=== PATIENT | female | born 1985 | race Caucasian/White ===

== ENCOUNTER 2020-10-19 18:51 | Inpatient (IN) | payer MEDICAID, OTHER ==
[~2020-10-19] VITALS: Ht 165.1 cm; Wt 71.7 kg
[2020-10-19 19:50] LABS: COVID AG,FIA SOURCE NASOPHARYNGEAL
[2020-10-19 19:55] LABS: BASOPHILS % (AUTO) 0.8 % (0.0-2.0); EOSINOPHILS % (AUTO) 0.9 % (1.0-6.0); HEMATOCRIT 43.1 % (36-46); LYMPHOCYTES # (AUTO) 2.1 K/uL (1.0-4.8); LYMPHOCYTES % (AUTO) 31.7 % (22.0-44.0); MEAN CORPUSCULAR HEMOGLOBIN 27.4 pg (26.0-34.0); MEAN CORPUSCULAR HGB CONC 32.5 G/dL (31.0-37.0); MEAN CORPUSCULAR VOLUME 84 fL (80-100); MONOCYTES # (AUTO) 0.8 K/uL (0.1-1.0); MONOCYTES % (AUTO) 11.3 % (2.0-9.0); NEUTROPHILS # (AUTO) 3.7 K/uL (1.8-7.7); NEUTROPHILS % (AUTO) 55.3 % (40.0-70.0); PLATELET COUNT (AUTO) 329 K/uL (150-450); RED BLOOD CELL COUNT(AUTO) 5.11 MIL/uL (4.00-5.20); RED CELL DISTRIBUTION WIDTH 14.6 % (11.5-14.5)
[2020-10-19 20:05] LABS: ANION GAP 8 mmol/L (8-16); CALCIUM, TOTAL 8.8 mg/dL (8.8-10.5); CARBON DIOXIDE 28 mmol/L (22-29); CHLORIDE 99 mmol/L (98-107); CREATININE 0.64 mg/dL (0.60-1.30); GLOMERULAR FILTR. RATE CALC > 60 mL/min (>60); GLUCOSE,RANDOM 90 mg/dL (70-110); POTASSIUM 3.5 mmol/L (3.5-5.1); SODIUM SERUM 135 mmol/L (136-145); UREA NITROGEN, BLOOD 4 mg/dL (7-18)
[2020-10-19 20:16] LABS: ALANINE AMINOTRANSFERASE 24 U/L (12-78); ALBUMIN 3.2 g/dL (3.4-5.0); ALKALINE PHOSPHATASE 56 U/L (46-116); ASPARTATE AMINOTRANSFERASE 12 U/L (15-37); BILIRUBIN,TOTAL 0.4 mg/dL (0.1-1.0); HCG,QUANTITATIVE < 1 mIU/mL (0-6); TOTAL PROTEIN, SERUM 7.1 g/dL (6.4-8.2)
[2020-10-19 20:40] LABS: AMPHET/METH SCREEN,URINE NEGATIVE (NEGATIVE); BARBITURATE SCREEN, URINE NEGATIVE (NEGATIVE); BENZODIAZEPINES SCREEN,URINE NEGATIVE (NEGATIVE); CANNABINOID SCREEN,URINE NEGATIVE (NEGATIVE); COCAINE SCREEN,URINE NEGATIVE (NEGATIVE); METHADONE SCREEN, URINE NEGATIVE (NEGATIVE); OPIATE SCREEN,URINE NEGATIVE (NEGATIVE); PHENCYCLIDINE SCREEN,URINE NEGATIVE (NEGATIVE)
[2020-10-19] MEDS ORDERED: ZOLPIDEM TARTRATE 10 MG TABLET PO PRN (21:30)
[2020-10-20 02:55] LABS: CHOL/HDL RATIO 2.8 (3.9-5.7); CHOLESTEROL 175 mg/dL (131-200); HDL CHOLESTEROL 63 mg/dL (40-60); LDL CHOL (CALC.) 94 mg/dL (0-130); TRIGLYCERIDES 90 mg/dL (15-150)
[2020-10-20] MEDS ORDERED: LOPERAMIDE HCL 2 MG CAPSULE PO PRN (12:00)
[2020-10-20] MEDS ORDERED: MAG HYDROX/AL HYDROX/SIMETH ES 30 ML SUSPENSION UDCUP PO PRN (12:00)
[2020-10-20] MEDS ORDERED: PROMETHAZINE HCL 25 MG TABLET PO PRN (12:00)
[2020-10-20] MEDS ORDERED: ACETAMINOPHEN 325 MG TABLET PO PRN (12:00)
[2020-10-20] MEDS ORDERED: MAGNESIUM HYDROXIDE SUSPENSION 30 ML UDCUP PO PRN (12:00)
[2020-10-20] MEDS ORDERED: TUBERCULIN, PURIFIED PROTEIN DERIVATIVE 5 TU/0.1 ML SYRINGE ID ONE (12:00)
[2020-10-20] MEDS ORDERED: HydrOXYzine PAMOATE 50 MG CAPSULE PO PRN (12:00)
[2020-10-20] MEDS ORDERED: PALIPERIDONE PALMITATE 234 MG/1.5 ML SYRINGE IM ONE (12:00)
[2020-10-20 12:48] VITALS: BP 147/89
[2020-10-20] MEDS: GuaiFENesin/D-METHORPHAN [SUGAR-FREE] 200-20MG/10 ML SYRUP UDCUP PO PRN (13:16)
[2020-10-20] MEDS: LORazepam 2 MG TABLET PO PRN ×2 (13:17→17:28)
[2020-10-20 16:00] VITALS: BP 97/73
[2020-10-20] MEDS: THIAMINE 100 MG TABLET PO SCH (17:28)
[2020-10-20] MEDS ORDERED: OLANZapine 5 MG RAPDIS TABLET PO SCH (21:00)
[2020-10-20] MEDS: MELATONIN 5 MG TABLET PO SCH (22:59)
[2020-10-21 02:00] VITALS: BP 120/81
[2020-10-21] MEDS: OLANZapine 5 MG RAPDIS TABLET PO PRN ×2 (04:46→16:18)
[2020-10-21] MEDS: LORazepam 2 MG TABLET PO PRN (04:46)
[2020-10-21] MEDS: GuaiFENesin/D-METHORPHAN [SUGAR-FREE] 200-20MG/10 ML SYRUP UDCUP PO PRN (04:49)
[2020-10-21 04:53] VITALS: BP 115/83
[2020-10-21 07:27] LABS: HEMOGLOBIN A1C 5.6 % (3.8-5.6)
[2020-10-21 07:35] LABS: CHOL/HDL RATIO 3.3 (3.9-5.7); FREE T4 (FREE THYROXINE) 0.92 ng/dL (0.76-1.46); THYROID STIMULATING HORMONE 1.15 uIU/mL (0.36-3.74)
[2020-10-21] MEDS: MULTIVITAMINS WITH MINERALS, THERAPEUTIC TABLET PO SCH (08:32)
[2020-10-21] MEDS: OMEGA-3/DHA/EPA/FISH OIL 1,000 MG CAPSULE PO SCH (08:32)
[2020-10-21] MEDS: NALTREXONE HCL 50 MG TABLET PO SCH (08:32)
[2020-10-21] MEDS: FOLIC ACID 1 MG TABLET PO SCH (08:32)
[2020-10-21] MEDS: THIAMINE 100 MG TABLET PO SCH ×2 (08:32→16:17)
[2020-10-21 08:45] VITALS: BP 126/69
[2020-10-21 16:26] VITALS: BP 106/76
[2020-10-21] MEDS: MELATONIN 5 MG TABLET PO SCH (21:20)
[2020-10-21] MEDS: OLANZapine 10 MG RAPDIS TABLET PO SCH (21:21)
[2020-10-22] MEDS: FOLIC ACID 1 MG TABLET PO SCH (08:36)
[2020-10-22] MEDS: OMEGA-3/DHA/EPA/FISH OIL 1,000 MG CAPSULE PO SCH (08:36)
[2020-10-22] MEDS: MULTIVITAMINS WITH MINERALS, THERAPEUTIC TABLET PO SCH (08:36)
[2020-10-22] MEDS: THIAMINE 100 MG TABLET PO SCH ×2 (08:36→16:16)
[2020-10-22] MEDS: NALTREXONE HCL 50 MG TABLET PO SCH (08:37)
[2020-10-22 08:54] VITALS: BP 109/58
[2020-10-22] MEDS: OLANZapine 5 MG RAPDIS TABLET PO PRN (16:50)
[2020-10-22 17:21] VITALS: BP 116/72
[2020-10-22] MEDS: MELATONIN 5 MG TABLET PO SCH (20:57)
[2020-10-22] MEDS: OLANZapine 10 MG RAPDIS TABLET PO SCH (20:57)
[2020-10-23 08:00] VITALS: BP 115/81
[2020-10-23] MEDS: NALTREXONE HCL 50 MG TABLET PO SCH (08:42)
[2020-10-23] MEDS: FLUoxetine HCL 20 MG CAPSULE PO SCH (08:42)
[2020-10-23] MEDS: FOLIC ACID 1 MG TABLET PO SCH (08:42)
[2020-10-23] MEDS: MULTIVITAMINS WITH MINERALS, THERAPEUTIC TABLET PO SCH (08:42)
[2020-10-23] MEDS: THIAMINE 100 MG TABLET PO SCH ×2 (08:42→17:09)
[2020-10-23] MEDS: OMEGA-3/DHA/EPA/FISH OIL 1,000 MG CAPSULE PO SCH (08:42)
[2020-10-23] MEDS: GuaiFENesin/D-METHORPHAN [SUGAR-FREE] 200-20MG/10 ML SYRUP UDCUP PO PRN ×2 (12:03→17:13)
[2020-10-23] MEDS: LORazepam 2 MG TABLET PO PRN (12:07)
[2020-10-23 16:00] VITALS: BP 125/62
[2020-10-23] MEDS: MELATONIN 5 MG TABLET PO SCH (20:44)
[2020-10-23] MEDS: OLANZapine 5 MG RAPDIS TABLET PO SCH (20:44)
[2020-10-23] MEDS: QUEtiapine FUMARATE 200 MG TABLET PO SCH (20:45)
[2020-10-24 08:00] VITALS: BP 105/57
[2020-10-24] MEDS: FOLIC ACID 1 MG TABLET PO SCH (08:49)
[2020-10-24] MEDS: THIAMINE 100 MG TABLET PO SCH ×2 (08:50→16:55)
[2020-10-24] MEDS: MULTIVITAMINS WITH MINERALS, THERAPEUTIC TABLET PO SCH (08:50)
[2020-10-24] MEDS: OMEGA-3/DHA/EPA/FISH OIL 1,000 MG CAPSULE PO SCH (08:50)
[2020-10-24] MEDS: NALTREXONE HCL 50 MG TABLET PO SCH (08:50)
[2020-10-24] MEDS: FLUoxetine HCL 20 MG CAPSULE PO SCH (08:50)
[2020-10-24] MEDS ORDERED: PALIPERIDONE PALMITATE 156 MG/ML SYRINGE IM ONE (09:00)
[2020-10-24 16:06] VITALS: BP 104/64
[2020-10-24] MEDS: GuaiFENesin/D-METHORPHAN [SUGAR-FREE] 200-20MG/10 ML SYRUP UDCUP PO PRN (16:58)
[2020-10-24] MEDS: QUEtiapine FUMARATE 200 MG TABLET PO SCH (21:50)
[2020-10-24] MEDS: OLANZapine 5 MG RAPDIS TABLET PO SCH (21:50)
[2020-10-24] MEDS: MELATONIN 5 MG TABLET PO SCH (21:50)
[2020-10-25 08:37] LABS: COVID AG,FIA SOURCE NASOPHARYNGEAL
[2020-10-25 09:00] VITALS: BP 122/60
[2020-10-25] MEDS: THIAMINE 100 MG TABLET PO SCH ×2 (09:03→16:07)
[2020-10-25] MEDS: NALTREXONE HCL 50 MG TABLET PO SCH (09:03)
[2020-10-25] MEDS: MULTIVITAMINS WITH MINERALS, THERAPEUTIC TABLET PO SCH (09:03)
[2020-10-25] MEDS: OMEGA-3/DHA/EPA/FISH OIL 1,000 MG CAPSULE PO SCH (09:03)
[2020-10-25] MEDS: FOLIC ACID 1 MG TABLET PO SCH (09:03)
[2020-10-25] MEDS: FLUoxetine HCL 20 MG CAPSULE PO SCH (09:03)
[2020-10-25] MEDS: GuaiFENesin/D-METHORPHAN [SUGAR-FREE] 200-20MG/10 ML SYRUP UDCUP PO PRN (16:07)
[2020-10-25 16:32] VITALS: BP 105/65
[2020-10-25] MEDS: IBUPROFEN 600 MG TABLET PO PRN (19:05)
[2020-10-25] MEDS: MELATONIN 5 MG TABLET PO SCH (20:19)
[2020-10-25] MEDS: OLANZapine 5 MG RAPDIS TABLET PO SCH (20:19)
[2020-10-25] MEDS: GABAPENTIN 400 MG CAPSULE PO SCH (20:19)
[2020-10-25] MEDS: QUEtiapine FUMARATE 200 MG TABLET PO SCH (20:19)
[2020-10-26] MEDS: NALTREXONE HCL 50 MG TABLET PO SCH (08:29)
[2020-10-26] MEDS: OMEGA-3/DHA/EPA/FISH OIL 1,000 MG CAPSULE PO SCH (08:29)
[2020-10-26] MEDS: THIAMINE 100 MG TABLET PO SCH ×2 (08:29→16:00)
[2020-10-26] MEDS: FOLIC ACID 1 MG TABLET PO SCH (08:29)
[2020-10-26] MEDS: GABAPENTIN 400 MG CAPSULE PO SCH ×4 (08:29→20:07)
[2020-10-26] MEDS: MULTIVITAMINS WITH MINERALS, THERAPEUTIC TABLET PO SCH (08:29)
[2020-10-26] MEDS: FLUoxetine HCL 20 MG CAPSULE PO SCH (08:29)
[2020-10-26 12:49] VITALS: BP 102/65
[2020-10-26] MEDS: IBUPROFEN 600 MG TABLET PO PRN ×2 (16:03→20:53)
[2020-10-26 16:21] VITALS: BP 109/62
[2020-10-26] MEDS: MELATONIN 5 MG TABLET PO SCH (20:07)
[2020-10-26] MEDS: OLANZapine 5 MG RAPDIS TABLET PO SCH (20:07)
[2020-10-26] MEDS: QUEtiapine FUMARATE 200 MG TABLET PO SCH (20:07)
[2020-10-27 08:04] VITALS: BP 157/54
[2020-10-27] MEDS: MULTIVITAMINS WITH MINERALS, THERAPEUTIC TABLET PO SCH (08:25)
[2020-10-27] MEDS: FLUoxetine HCL 20 MG CAPSULE PO SCH (08:25)
[2020-10-27] MEDS: OMEGA-3/DHA/EPA/FISH OIL 1,000 MG CAPSULE PO SCH (08:25)
[2020-10-27] MEDS: GABAPENTIN 400 MG CAPSULE PO SCH ×4 (08:25→20:10)
[2020-10-27] MEDS: NALTREXONE HCL 50 MG TABLET PO SCH (08:25)
[2020-10-27] MEDS: FOLIC ACID 1 MG TABLET PO SCH (08:25)
[2020-10-27] MEDS: THIAMINE 100 MG TABLET PO SCH ×2 (08:26→16:32)
[2020-10-27 16:13] VITALS: BP 110/69
[2020-10-27] MEDS: IBUPROFEN 600 MG TABLET PO PRN (16:34)
[2020-10-27] MEDS: MELATONIN 5 MG TABLET PO SCH (20:10)
[2020-10-27] MEDS: OLANZapine 5 MG RAPDIS TABLET PO SCH (20:10)
[2020-10-27] MEDS ORDERED: QUEtiapine FUMARATE 100 MG TABLET PO SCH (21:00)
[2020-10-28 08:00] VITALS: BP 103/73
[2020-10-28] MEDS: MULTIVITAMINS WITH MINERALS, THERAPEUTIC TABLET PO SCH (08:07)
[2020-10-28] MEDS: GABAPENTIN 400 MG CAPSULE PO SCH ×4 (08:07→20:33)
[2020-10-28] MEDS: OMEGA-3/DHA/EPA/FISH OIL 1,000 MG CAPSULE PO SCH (08:07)
[2020-10-28] MEDS: FLUoxetine HCL 20 MG CAPSULE PO SCH (08:07)
[2020-10-28] MEDS: NALTREXONE HCL 50 MG TABLET PO SCH (08:07)
[2020-10-28] MEDS: THIAMINE 100 MG TABLET PO SCH ×2 (08:07→16:14)
[2020-10-28] MEDS: FOLIC ACID 1 MG TABLET PO SCH (08:07)
[2020-10-28 16:00] VITALS: BP 107/67
[2020-10-28] MEDS: LORazepam 2 MG TABLET PO PRN (16:14)
[2020-10-28] MEDS: MELATONIN 5 MG TABLET PO SCH (20:31)
[2020-10-28] MEDS: OLANZapine 10 MG RAPDIS TABLET PO SCH (20:33)
[2020-10-29 08:00] VITALS: BP 105/60
[2020-10-29] MEDS: FLUoxetine HCL 20 MG CAPSULE PO SCH (09:17)
[2020-10-29] MEDS: THIAMINE 100 MG TABLET PO SCH ×2 (09:17→16:15)
[2020-10-29] MEDS: OMEGA-3/DHA/EPA/FISH OIL 1,000 MG CAPSULE PO SCH (09:17)
[2020-10-29] MEDS: NALTREXONE HCL 50 MG TABLET PO SCH (09:17)
[2020-10-29] MEDS: MULTIVITAMINS WITH MINERALS, THERAPEUTIC TABLET PO SCH (09:17)
[2020-10-29] MEDS: GABAPENTIN 400 MG CAPSULE PO SCH ×4 (09:17→20:08)
[2020-10-29] MEDS: FOLIC ACID 1 MG TABLET PO SCH (09:17)
[2020-10-29 16:26] VITALS: BP 124/84
[2020-10-29] MEDS: OLANZapine 10 MG RAPDIS TABLET PO SCH (20:08)
[2020-10-29] MEDS: MELATONIN 5 MG TABLET PO SCH (20:08)
[2020-10-30 09:15] VITALS: BP 97/49
[2020-10-30] MEDS: OMEGA-3/DHA/EPA/FISH OIL 1,000 MG CAPSULE PO SCH (09:33)
[2020-10-30] MEDS: FOLIC ACID 1 MG TABLET PO SCH (09:34)
[2020-10-30] MEDS: FLUoxetine HCL 20 MG CAPSULE PO SCH (09:34)
[2020-10-30] MEDS: NALTREXONE HCL 50 MG TABLET PO SCH (09:34)
[2020-10-30] MEDS: MULTIVITAMINS WITH MINERALS, THERAPEUTIC TABLET PO SCH (09:34)
[2020-10-30] MEDS: THIAMINE 100 MG TABLET PO SCH (09:34)
[2020-10-30] MEDS: GABAPENTIN 400 MG CAPSULE PO SCH ×4 (09:34→20:04)
[2020-10-30 16:00] VITALS: BP 110/72
[2020-10-30] MEDS: IBUPROFEN 600 MG TABLET PO PRN (16:26)
[2020-10-30] MEDS: MELATONIN 5 MG TABLET PO SCH (20:04)
[2020-10-30] MEDS: GuaiFENesin/D-METHORPHAN [SUGAR-FREE] 200-20MG/10 ML SYRUP UDCUP PO PRN (20:04)
[2020-10-30] MEDS: OLANZapine 10 MG RAPDIS TABLET PO SCH (20:04)
[2020-10-31] MEDS: NALTREXONE HCL 50 MG TABLET PO SCH (08:29)
[2020-10-31] MEDS: OMEGA-3/DHA/EPA/FISH OIL 1,000 MG CAPSULE PO SCH (08:29)
[2020-10-31] MEDS: MULTIVITAMINS WITH MINERALS, THERAPEUTIC TABLET PO SCH (08:29)
[2020-10-31] MEDS: FLUoxetine HCL 20 MG CAPSULE PO SCH (08:29)
[2020-10-31] MEDS: GABAPENTIN 400 MG CAPSULE PO SCH ×4 (08:29→20:52)
[2020-10-31 08:37] VITALS: BP 88/46
[2020-10-31 17:13] VITALS: BP 106/68
[2020-10-31] MEDS: GuaiFENesin/D-METHORPHAN [SUGAR-FREE] 200-20MG/10 ML SYRUP UDCUP PO PRN (17:14)
[2020-10-31] MEDS: MELATONIN 5 MG TABLET PO SCH (20:52)
[2020-10-31] MEDS: OLANZapine 10 MG RAPDIS TABLET PO SCH (20:53)
[2020-11-01] MEDS: OMEGA-3/DHA/EPA/FISH OIL 1,000 MG CAPSULE PO SCH (08:04)
[2020-11-01] MEDS: NALTREXONE HCL 50 MG TABLET PO SCH (08:05)
[2020-11-01] MEDS: MULTIVITAMINS WITH MINERALS, THERAPEUTIC TABLET PO SCH (08:05)
[2020-11-01] MEDS: GABAPENTIN 400 MG CAPSULE PO SCH ×4 (08:05→20:35)
[2020-11-01] MEDS: FLUoxetine HCL 20 MG CAPSULE PO SCH (08:05)
[2020-11-01 08:15] VITALS: BP 94/54
[2020-11-01 11:47] LABS: COVID AG,FIA SOURCE NASOPHARYNGEAL
[2020-11-01 16:14] VITALS: BP 103/54
[2020-11-01] MEDS: MELATONIN 5 MG TABLET PO SCH (20:35)
[2020-11-01] MEDS: OLANZapine 10 MG RAPDIS TABLET PO SCH (20:36)
[2020-11-02] MEDS: FLUoxetine HCL 20 MG CAPSULE PO SCH (08:29)
[2020-11-02] MEDS: NALTREXONE HCL 50 MG TABLET PO SCH (08:29)
[2020-11-02] MEDS: MULTIVITAMINS WITH MINERALS, THERAPEUTIC TABLET PO SCH (08:29)
[2020-11-02] MEDS: OMEGA-3/DHA/EPA/FISH OIL 1,000 MG CAPSULE PO SCH (08:29)
[2020-11-02] MEDS: GABAPENTIN 400 MG CAPSULE PO SCH ×4 (08:29→20:18)
[2020-11-02 09:24] VITALS: BP 100/58
[2020-11-02 12:32] VITALS: BP 99/56
[2020-11-02] MEDS: IBUPROFEN 600 MG TABLET PO PRN (12:32)
[2020-11-02 15:14] VITALS: BP 98/55
[2020-11-02 16:00] VITALS: BP 102/60
[2020-11-02] MEDS: OLANZapine 10 MG RAPDIS TABLET PO SCH (20:18)
[2020-11-02] MEDS: MELATONIN 5 MG TABLET PO SCH (20:18)
[2020-11-03] MEDS: MULTIVITAMINS WITH MINERALS, THERAPEUTIC TABLET PO SCH (08:16)
[2020-11-03] MEDS: NALTREXONE HCL 50 MG TABLET PO SCH (08:16)
[2020-11-03] MEDS: GABAPENTIN 400 MG CAPSULE PO SCH ×3 (08:16→16:21)
[2020-11-03] MEDS: FLUoxetine HCL 20 MG CAPSULE PO SCH (08:16)
[2020-11-03] MEDS: OMEGA-3/DHA/EPA/FISH OIL 1,000 MG CAPSULE PO SCH (08:16)
[2020-11-03] MEDS: IBUPROFEN 600 MG TABLET PO PRN (08:21)
[2020-11-03 08:22] VITALS: BP 104/65
[2020-11-03 16:13] VITALS: BP 102/69
[2020-11-03] MEDS: MELATONIN 5 MG TABLET PO SCH (21:11)
[2020-11-03] MEDS: OLANZapine 10 MG RAPDIS TABLET PO SCH (21:11)
[2020-11-03] MEDS: GABAPENTIN 300 MG CAPSULE PO SCH (21:11)
[2020-11-04 08:06] VITALS: BP 151/72
[2020-11-04] MEDS: MULTIVITAMINS WITH MINERALS, THERAPEUTIC TABLET PO SCH (08:25)
[2020-11-04] MEDS: OMEGA-3/DHA/EPA/FISH OIL 1,000 MG CAPSULE PO SCH (08:25)
[2020-11-04] MEDS: GABAPENTIN 300 MG CAPSULE PO SCH ×4 (08:25→20:19)
[2020-11-04] MEDS: NALTREXONE HCL 50 MG TABLET PO SCH (08:25)
[2020-11-04] MEDS: FLUoxetine HCL 20 MG CAPSULE PO SCH (08:25)
[2020-11-04] MEDS: IBUPROFEN 600 MG TABLET PO PRN (08:25)
[2020-11-04 16:22] VITALS: BP 109/78
[2020-11-04] MEDS: OLANZapine 10 MG RAPDIS TABLET PO SCH (20:19)
[2020-11-04] MEDS: MELATONIN 5 MG TABLET PO SCH (20:19)
[2020-11-05] MEDS: FLUoxetine HCL 20 MG CAPSULE PO SCH (08:30)
[2020-11-05] MEDS: MULTIVITAMINS WITH MINERALS, THERAPEUTIC TABLET PO SCH (08:30)
[2020-11-05] MEDS: GABAPENTIN 300 MG CAPSULE PO SCH ×4 (08:30→21:58)
[2020-11-05] MEDS: OMEGA-3/DHA/EPA/FISH OIL 1,000 MG CAPSULE PO SCH (08:30)
[2020-11-05] MEDS: NALTREXONE HCL 50 MG TABLET PO SCH (08:30)
[2020-11-05 09:00] VITALS: BP 106/68
[2020-11-05 16:08] VITALS: BP 105/69
[2020-11-05] MEDS ORDERED: PROPRANOLOL HCL 10 MG TABLET PO ONE (19:15)
[2020-11-05] MEDS ORDERED: TRIHEXYPHENIDYL HCL 5 MG TABLET PO ONE (19:15)
[2020-11-05] MEDS ORDERED: QUEtiapine FUMARATE 100 MG TABLET PO PRN (19:15)
[2020-11-05] MEDS: IBUPROFEN 600 MG TABLET PO PRN (19:57)
[2020-11-05 21:00] LABS: APPEARANCE,URINE CLEAR (CLEAR); BILIRUBIN,URINE NEGATIVE (NEGATIVE); GLUCOSE, URINE (UA) NEGATIVE (NEGATIVE); KETONES,URINE NEGATIVE (NEGATIVE); LEUKOCYTE ESTERASE ,URINE SMALL (NEGATIVE); NITRATE,URINE NEGATIVE (NEGATIVE); OCCULT BLOOD,URINE NEGATIVE (NEGATIVE); PH,URINE 7.5 (5.0-8.0); PROTEIN,URINE NEGATIVE (NEGATIVE); UROBILINOGEN,URINE 0.2 mg/dL (<=1.0)
[2020-11-05] MEDS ORDERED: OLANZapine 10 MG RAPDIS TABLET PO SCH (21:00)
[2020-11-05] MEDS ORDERED: QUEtiapine FUMARATE 200 MG TABLET PO SCH (21:00)
[2020-11-05 21:26] LABS: BACTERIA,URINE Rare /HPF (None Seen); RBC,URINE 0-2 /HPF (0-2); SQUAMOUS EPITHELIAL CELL,UR Few /LPF (None Seen)
[2020-11-05 21:55] VITALS: BP 106/62
[2020-11-05] MEDS: PROPRANOLOL HCL 10 MG TABLET PO SCH (21:58)
[2020-11-05] MEDS: NITROFURANTOIN/NITROFURAN MAC 100 MG CAPSULE [MACROBID] PO SCH (21:58)
[2020-11-05] MEDS: MELATONIN 5 MG TABLET PO SCH (21:58)
[2020-11-06] MEDS: ZIPRASIDONE HCL 20 MG CAPSULE PO SCH ×2 (06:31→16:29)
[2020-11-06 08:00] VITALS: BP 104/58
[2020-11-06] MEDS ORDERED: NITROFURANTOIN/NITROFURAN MAC 100 MG CAPSULE [MACROBID] PO SCH (09:00)
[2020-11-06] MEDS: MULTIVITAMINS WITH MINERALS, THERAPEUTIC TABLET PO SCH (09:03)
[2020-11-06] MEDS: FLUoxetine HCL 20 MG CAPSULE PO SCH (09:03)
[2020-11-06] MEDS: NALTREXONE HCL 50 MG TABLET PO SCH (09:03)
[2020-11-06] MEDS: TRIHEXYPHENIDYL HCL 5 MG TABLET PO SCH ×3 (09:04→16:28)
[2020-11-06] MEDS: NITROFURANTOIN/NITROFURAN MAC 100 MG CAPSULE [MACROBID] PO SCH ×2 (09:04→16:29)
[2020-11-06] MEDS: PROPRANOLOL HCL 10 MG TABLET PO SCH ×3 (09:04→16:28)
[2020-11-06] MEDS: OMEGA-3/DHA/EPA/FISH OIL 1,000 MG CAPSULE PO SCH (09:04)
[2020-11-06] MEDS: GABAPENTIN 300 MG CAPSULE PO SCH ×3 (09:05→16:28)
[2020-11-06 16:00] VITALS: BP 105/52
[2020-11-06] MEDS ORDERED: NALT50TA PO (18:35)
[2020-11-06] MEDS ORDERED: FLUO20CA36 PO (18:35)
[2020-11-06] MEDS ORDERED: MELA5TAB3 PO (18:35)
[2020-11-06] MEDS ORDERED: OLAN10TA22 PO (18:35)
[2020-11-06] MEDS ORDERED: PROP10TA72 PO (18:35)
[2020-11-06] MEDS ORDERED: GABA-1181 PO (18:35)
[2020-11-06] MEDS ORDERED: OMEG-135 PO (18:35)
[2020-11-06] MEDS ORDERED: TRIH5TAB3 PO (18:35)
[2020-11-06] MEDS ORDERED: OLANZapine 5 MG RAPDIS TABLET PO SCH (21:00)
== END 2020-11-06 19:10 | disposition left against medical advice (07) | DRG 750 ==
LOC: EMS 18:53 → 3EI 22:47
PROVIDERS: ADMIT Psychiatry & Neurology Psychiatry; ATTEND Psychiatry & Neurology Psychiatry
DX: F25.1 Schizoaffective disorder, depressive type (principal); R45.851 Suicidal ideations; E87.1 Hypo-osmolality and hyponatremia; E88.09 Other disorders of plasma-protein metabolism, not elsewhere classified; Z20.822 Contact with and (suspected) exposure to COVID-19; Z59.0 Homelessness; Z59.9 Problem related to housing and economic circumstances, unspecified; Z65.3 Problems related to other legal circumstances; Z55.9 Problems related to education and literacy, unspecified
CPT/HCPCS: 80053; 80061; 81001; 83036; 84439; 84443; 84702; 85025; 86592; 87426; 99285; A9575; G0480

== ENCOUNTER 2021-01-05 06:17 | Emergency (ER) | payer MEDICAID, OTHER ==
[~2021-01-05] VITALS: Ht 165.1 cm; Wt 68.2 kg
[~2021-01-05 06:17] MED LIST: DIVA-80 PO; FLUO-191 PO; FLUO20CA36 PO; GABA-1181 PO; HALO1 PO; HALO10 PO; MELA5TAB3 PO; NALT50TA PO; OLAN10TA22 PO; OMEG-135 PO; PRAZ1 PO; PROP10TA72 PO; TRIH2TAB3 PO; TRIH5TAB3 PO
[2021-01-05 06:48] LABS: BASOPHILS % (AUTO) 0.5 % (0.0-2.0); EOSINOPHILS % (AUTO) 0.5 % (1.0-6.0); HEMATOCRIT 36.2 % (36-46); LYMPHOCYTES # (AUTO) 1.3 K/uL (1.0-4.8); MEAN CORPUSCULAR HGB CONC 33.1 G/dL (31.0-37.0); MEAN CORPUSCULAR VOLUME 85 fL (80-100); MONOCYTES # (AUTO) 1.1 K/uL (0.1-1.0); MONOCYTES % (AUTO) 8.6 % (2.0-9.0); NEUTROPHILS # (AUTO) 10.6 K/uL (1.8-7.7); NEUTROPHILS % (AUTO) 80.4 % (40.0-70.0); PLATELET COUNT (AUTO) 300 K/uL (150-450); RED BLOOD CELL COUNT(AUTO) 4.28 MIL/uL (4.00-5.20); RED CELL DISTRIBUTION WIDTH 16.7 % (11.5-14.5)
[2021-01-05 06:56] LABS: ANION GAP 9 mmol/L (8-16); CALCIUM, TOTAL 8.8 mg/dL (8.8-10.5); CARBON DIOXIDE 25 mmol/L (22-29); CHLORIDE 99 mmol/L (98-107); CREATININE 0.73 mg/dL (0.60-1.30); GLOMERULAR FILTR. RATE CALC > 60 mL/min (>60); GLUCOSE,RANDOM 111 mg/dL (70-110); POTASSIUM 3.6 mmol/L (3.5-5.1); SODIUM SERUM 133 mmol/L (136-145); UREA NITROGEN, BLOOD 12 mg/dL (7-18)
[2021-01-05 07:07] LABS: ALANINE AMINOTRANSFERASE 29 U/L (12-78); ALBUMIN 3.5 g/dL (3.4-5.0); ALKALINE PHOSPHATASE 72 U/L (46-116); ASPARTATE AMINOTRANSFERASE 35 U/L (15-37); HCG,QUANTITATIVE < 1 mIU/mL (0-6); TOTAL PROTEIN, SERUM 7.7 g/dL (6.4-8.2); VALPROIC ACID < 3 mcg/mL (50-100)
[2021-01-05 09:12] VITALS: BP 138/69
== END 2021-01-05 10:29 | disposition home or self-care (01) ==
LOC: EMS 06:18
DX: F15.10 Other stimulant abuse, uncomplicated (principal); F22 Delusional disorders; F20.9 Schizophrenia, unspecified; Z79.899 Other long term (current) drug therapy
CPT/HCPCS: 36415; 80053; 80164; 84702; 85025; 99283; G0480

== ENCOUNTER 2021-01-11 15:33 | Emergency (ER) | payer OTHER ==
[~2021-01-11] VITALS: Ht 172.7 cm; Wt 77.3 kg
[2021-01-11 16:36] LABS: BASOPHILS % (AUTO) 0.6 % (0.0-2.0); HEMATOCRIT 41.2 % (36-46); HEMOGLOBIN 13.5 g/dL (12.0-16.0); LYMPHOCYTES # (AUTO) 1.7 K/uL (1.0-4.8); LYMPHOCYTES % (AUTO) 27.4 % (22.0-44.0); MEAN CORPUSCULAR HEMOGLOBIN 28.1 pg (26.0-34.0); MEAN CORPUSCULAR HGB CONC 32.7 G/dL (31.0-37.0); MEAN CORPUSCULAR VOLUME 86 fL (80-100); MONOCYTES # (AUTO) 0.7 K/uL (0.1-1.0); MONOCYTES % (AUTO) 10.6 % (2.0-9.0); NEUTROPHILS # (AUTO) 3.8 K/uL (1.8-7.7); NEUTROPHILS % (AUTO) 60.4 % (40.0-70.0); PLATELET COUNT (AUTO) 329 K/uL (150-450); RED CELL DISTRIBUTION WIDTH 16.6 % (11.5-14.5)
[2021-01-11 16:44] LABS: ANION GAP 9 mmol/L (8-16); CALCIUM, TOTAL 8.8 mg/dL (8.8-10.5); CARBON DIOXIDE 25 mmol/L (22-29); CHLORIDE 104 mmol/L (98-107); CREATININE 0.63 mg/dL (0.60-1.30); GLOMERULAR FILTR. RATE CALC > 60 mL/min (>60); GLUCOSE,RANDOM 99 mg/dL (70-110); POTASSIUM 3.5 mmol/L (3.5-5.1); SODIUM SERUM 138 mmol/L (136-145); UREA NITROGEN, BLOOD 6 mg/dL (7-18)
[2021-01-11] MEDS ORDERED: ACETAMINOPHEN 325 MG TABLET PO ONE (16:45)
[2021-01-11] MEDS ORDERED: HALOPERIDOL 5 MG TABLET PO ONE (16:45)
[2021-01-11 16:51] LABS: ALANINE AMINOTRANSFERASE 28 U/L (12-78); ALBUMIN 3.7 g/dL (3.4-5.0); ALKALINE PHOSPHATASE 71 U/L (46-116); ASPARTATE AMINOTRANSFERASE 20 U/L (15-37); BILIRUBIN,TOTAL 0.5 mg/dL (0.1-1.0); TOTAL PROTEIN, SERUM 8.2 g/dL (6.4-8.2); VALPROIC ACID < 3 mcg/mL (50-100)
[2021-01-11 17:56] LABS: AMPHET/METH SCREEN,URINE POSITIVE (NEGATIVE); BARBITURATE SCREEN, URINE NEGATIVE (NEGATIVE); BENZODIAZEPINES SCREEN,URINE NEGATIVE (NEGATIVE); CANNABINOID SCREEN,URINE POSITIVE (NEGATIVE); COCAINE SCREEN,URINE POSITIVE (NEGATIVE); METHADONE SCREEN, URINE NEGATIVE (NEGATIVE); OPIATE SCREEN,URINE NEGATIVE (NEGATIVE)
[2021-01-11 17:57] LABS: PHENCYCLIDINE SCREEN,URINE NEGATIVE (NEGATIVE)
[2021-01-11 18:22] VITALS: BP 99/59
== END 2021-01-11 18:53 | disposition home or self-care (01) ==
LOC: EMS 15:38
DX: F20.9 Schizophrenia, unspecified (principal); F15.90 Other stimulant use, unspecified, uncomplicated; Z79.899 Other long term (current) drug therapy
CPT/HCPCS: 36415; 80053; 80164; 80307; 85025; 99284; G0480

== ENCOUNTER 2021-02-26 11:49 | Emergency (ER) | payer OTHER ==
[~2021-02-26] VITALS: Ht 165.1 cm; Wt 79.5 kg
[~2021-02-26 11:49] MED LIST changes: -FLUO-191 PO; -MELA5TAB3 PO; +MELA5TAB40 PO; -TRIH2TAB3 PO
[2021-02-26] MEDS ORDERED: LORazepam 1 MG TABLET PO ONE (12:30)
[2021-02-26] MEDS ORDERED: ACETAMINOPHEN 500 MG TABLET PO ONE (12:30)
[2021-02-26 12:44] LABS: BASOPHILS % (AUTO) 0.5 % (0.0-2.0); EOSINOPHILS % (AUTO) 0.2 % (1.0-6.0); HEMATOCRIT 40.2 % (36-46); HEMOGLOBIN 13.2 g/dL (12.0-16.0); LYMPHOCYTES % (AUTO) 20.6 % (22.0-44.0); MEAN CORPUSCULAR HGB CONC 32.7 G/dL (31.0-37.0); MEAN CORPUSCULAR VOLUME 85 fL (80-100); MONOCYTES # (AUTO) 0.9 K/uL (0.1-1.0); NEUTROPHILS # (AUTO) 6.9 K/uL (1.8-7.7); NEUTROPHILS % (AUTO) 69.7 % (40.0-70.0); PLATELET COUNT (AUTO) 369 K/uL (150-450); RED BLOOD CELL COUNT(AUTO) 4.71 MIL/uL (4.00-5.20)
[2021-02-26 12:52] LABS: ANION GAP 10 mmol/L (8-16); CALCIUM, TOTAL 8.5 mg/dL (8.8-10.5); CARBON DIOXIDE 24 mmol/L (22-29); CHLORIDE 102 mmol/L (98-107); CREATININE 0.73 mg/dL (0.60-1.30); GLOMERULAR FILTR. RATE CALC > 60 mL/min (>60); GLUCOSE,RANDOM 97 mg/dL (70-110); POTASSIUM 3.9 mmol/L (3.5-5.1); SODIUM SERUM 136 mmol/L (136-145); UREA NITROGEN, BLOOD 13 mg/dL (7-18)
[2021-02-26 13:03] LABS: ALANINE AMINOTRANSFERASE 27 U/L (12-78); ALBUMIN 3.8 g/dL (3.4-5.0); ALKALINE PHOSPHATASE 53 U/L (46-116); ASPARTATE AMINOTRANSFERASE 17 U/L (15-37); BILIRUBIN,TOTAL 0.5 mg/dL (0.1-1.0); HCG,QUANTITATIVE < 1 mIU/mL (0-6); TOTAL PROTEIN, SERUM 8.1 g/dL (6.4-8.2)
[2021-02-26 13:15] LABS: VALPROIC ACID 4 mcg/mL (50-100)
[2021-02-26] MEDS ORDERED: HALOPERIDOL 5 MG TABLET PO ONE (15:00)
[2021-02-26 15:15] VITALS: BP 118/72
[2021-02-26 15:30] LABS: AMPHET/METH SCREEN,URINE POSITIVE (NEGATIVE); BARBITURATE SCREEN, URINE NEGATIVE (NEGATIVE); BENZODIAZEPINES SCREEN,URINE NEGATIVE (NEGATIVE); CANNABINOID SCREEN,URINE NEGATIVE (NEGATIVE); COCAINE SCREEN,URINE NEGATIVE (NEGATIVE); METHADONE SCREEN, URINE NEGATIVE (NEGATIVE); OPIATE SCREEN,URINE NEGATIVE (NEGATIVE); PHENCYCLIDINE SCREEN,URINE NEGATIVE (NEGATIVE)
== END 2021-02-26 16:22 | disposition home or self-care (01) ==
LOC: EMS 11:51
DX: F20.9 Schizophrenia, unspecified (principal); F15.10 Other stimulant abuse, uncomplicated; R51.9 Headache, unspecified; R55 Syncope and collapse; F41.9 Anxiety disorder, unspecified; Z79.899 Other long term (current) drug therapy
CPT/HCPCS: 36415; 70450; 80053; 80164; 80307; 84702; 85025; 93005; 99285; G0480

== ENCOUNTER 2021-02-26 18:23 | Inpatient (IN) | payer MEDICAID, OTHER ==
[~2021-02-26] VITALS: Ht 165.1 cm; Wt 82.6 kg
[2021-02-26] MEDS ORDERED: LORazepam 2 MG TABLET PO ONE (20:00)
[2021-02-26 20:27] LABS: BASOPHILS % (AUTO) 0.6 % (0.0-2.0); EOSINOPHILS % (AUTO) 1.2 % (1.0-6.0); HEMATOCRIT 39.3 % (36-46); HEMOGLOBIN 12.9 g/dL (12.0-16.0); LYMPHOCYTES # (AUTO) 2.4 K/uL (1.0-4.8); LYMPHOCYTES % (AUTO) 28.5 % (22.0-44.0); MEAN CORPUSCULAR HGB CONC 32.7 G/dL (31.0-37.0); MEAN CORPUSCULAR VOLUME 86 fL (80-100); MONOCYTES # (AUTO) 0.8 K/uL (0.1-1.0); MONOCYTES % (AUTO) 9.8 % (2.0-9.0); NEUTROPHILS # (AUTO) 5.1 K/uL (1.8-7.7); NEUTROPHILS % (AUTO) 59.9 % (40.0-70.0); PLATELET COUNT (AUTO) 357 K/uL (150-450); RED BLOOD CELL COUNT(AUTO) 4.59 MIL/uL (4.00-5.20); RED CELL DISTRIBUTION WIDTH 14.9 % (11.5-14.5)
[2021-02-26 20:30] LABS: COVID AG,FIA SOURCE NASOPHARYNGEAL
[2021-02-26 20:41] LABS: ANION GAP 8 mmol/L (8-16); CALCIUM, TOTAL 8.5 mg/dL (8.8-10.5); CARBON DIOXIDE 27 mmol/L (22-29); CHLORIDE 102 mmol/L (98-107); CREATININE 0.72 mg/dL (0.60-1.30); GLOMERULAR FILTR. RATE CALC > 60 mL/min (>60); GLUCOSE,RANDOM 87 mg/dL (70-110); POTASSIUM 3.7 mmol/L (3.5-5.1); SODIUM SERUM 137 mmol/L (136-145); UREA NITROGEN, BLOOD 9 mg/dL (7-18)
[2021-02-26 20:46] LABS: AMPHET/METH SCREEN,URINE POSITIVE (NEGATIVE); BARBITURATE SCREEN, URINE NEGATIVE (NEGATIVE); BENZODIAZEPINES SCREEN,URINE NEGATIVE (NEGATIVE); CANNABINOID SCREEN,URINE NEGATIVE (NEGATIVE); COCAINE SCREEN,URINE NEGATIVE (NEGATIVE); METHADONE SCREEN, URINE NEGATIVE (NEGATIVE); OPIATE SCREEN,URINE NEGATIVE (NEGATIVE)
[2021-02-26 20:47] LABS: PHENCYCLIDINE SCREEN,URINE NEGATIVE (NEGATIVE)
[2021-02-26 20:53] LABS: ALANINE AMINOTRANSFERASE 26 U/L (12-78); ALBUMIN 3.5 g/dL (3.4-5.0); ALKALINE PHOSPHATASE 49 U/L (46-116); ASPARTATE AMINOTRANSFERASE 17 U/L (15-37); BILIRUBIN,TOTAL 0.6 mg/dL (0.1-1.0); HCG,QUANTITATIVE < 1 mIU/mL (0-6); TOTAL PROTEIN, SERUM 7.7 g/dL (6.4-8.2)
[2021-02-26 20:57] LABS: VALPROIC ACID < 3 mcg/mL (50-100)
[2021-02-26] MEDS ORDERED: HALOPERIDOL 5 MG TABLET PO PRN (21:00)
[2021-02-26] MEDS ORDERED: ZOLPIDEM TARTRATE 10 MG TABLET PO PRN (21:00)
[2021-02-27 00:51] LABS: APPEARANCE,URINE CLEAR (CLEAR); BILIRUBIN,URINE NEGATIVE (NEGATIVE); GLUCOSE, URINE (UA) NEGATIVE (NEGATIVE); KETONES,URINE NEGATIVE (NEGATIVE); LEUKOCYTE ESTERASE ,URINE NEGATIVE (NEGATIVE); NITRATE,URINE NEGATIVE (NEGATIVE); OCCULT BLOOD,URINE NEGATIVE (NEGATIVE); PROTEIN,URINE NEGATIVE (NEGATIVE); UROBILINOGEN,URINE 0.2 mg/dL (<=1.0)
[2021-02-27 00:54] LABS: CHOL/HDL RATIO 2.1 (3.9-5.7); CHOLESTEROL 195 mg/dL (131-200); HDL CHOLESTEROL 94 mg/dL (40-60); LDL CHOL (CALC.) 94 mg/dL (0-130); TRIGLYCERIDES 34 mg/dL (15-150)
[2021-02-27] MEDS: LORazepam 2 MG TABLET PO PRN ×2 (02:09→09:21)
[2021-02-27 02:14] VITALS: BP 114/73
[2021-02-27 08:07] VITALS: BP 120/61
[2021-02-27] MEDS ORDERED: BACITRACIN 28 GM OINTMENT TP PRN (08:15)
[2021-02-27] MEDS ORDERED: MAGNESIUM HYDROXIDE SUSPENSION 30 ML UDCUP PO PRN (08:15)
[2021-02-27] MEDS ORDERED: BENZOCAINE/MENTHOL LOZENGE PO PRN (08:15)
[2021-02-27] MEDS ORDERED: ONDANSETRON HCL 4 MG TABLET PO PRN (08:15)
[2021-02-27] MEDS ORDERED: CloNIDine HCL 0.1 MG TABLET PO PRN (08:15)
[2021-02-27] MEDS ORDERED: ACETAMINOPHEN 325 MG TABLET PO PRN (08:15)
[2021-02-27] MEDS ORDERED: ALBUTEROL SULFATE HFA 90 MCG/PUFF 8 GM INHALER IH PRN (08:15)
[2021-02-27] MEDS ORDERED: LOPERAMIDE HCL 2 MG CAPSULE PO PRN (08:15)
[2021-02-27] MEDS ORDERED: MAG HYDROX/AL HYDROX/SIMETH ES 30 ML SUSPENSION UDCUP PO PRN (08:15)
[2021-02-27] MEDS ORDERED: DOCUSATE SODIUM 100 MG CAPSULE PO PRN (08:15)
[2021-02-27] MEDS ORDERED: OMEPRAZOLE 20 MG CAPSULE PO PRN (08:15)
[2021-02-27] MEDS ORDERED: PETROLATUM,WHITE 28 GM JELLY TP PRN (08:15)
[2021-02-27] MEDS: OMEGA-3/DHA/EPA/FISH OIL 1,000 MG CAPSULE PO SCH (09:17)
[2021-02-27 16:05] VITALS: BP 107/69
[2021-02-27] MEDS: DIVALPROEX SODIUM 500 MG DR TABLET PO SCH (16:12)
[2021-02-27] MEDS: GABAPENTIN 300 MG CAPSULE PO SCH ×2 (16:12→20:00)
[2021-02-27] MEDS: TRIHEXYPHENIDYL HCL 2 MG TABLET PO SCH (16:12)
[2021-02-27] MEDS: HALOPERIDOL 5 MG TABLET PO SCH (20:00)
[2021-02-28 05:16] VITALS: BP 119/67
[2021-02-28 08:25] VITALS: BP 111/63
[2021-02-28] MEDS: DIVALPROEX SODIUM 500 MG DR TABLET PO SCH ×3 (08:35→16:08)
[2021-02-28] MEDS: GABAPENTIN 300 MG CAPSULE PO SCH ×4 (08:36→20:03)
[2021-02-28] MEDS: OMEGA-3/DHA/EPA/FISH OIL 1,000 MG CAPSULE PO SCH (08:37)
[2021-02-28] MEDS: TRIHEXYPHENIDYL HCL 2 MG TABLET PO SCH ×2 (08:37→16:08)
[2021-02-28 16:06] VITALS: BP 109/67
[2021-02-28] MEDS: IBUPROFEN 600 MG TABLET PO PRN (18:34)
[2021-02-28] MEDS: HALOPERIDOL 5 MG TABLET PO SCH (20:03)
[2021-03-01 01:54] VITALS: BP 110/67
[2021-03-01 08:12] VITALS: BP 115/70
[2021-03-01] MEDS: GABAPENTIN 300 MG CAPSULE PO SCH ×4 (09:24→20:06)
[2021-03-01] MEDS: TRIHEXYPHENIDYL HCL 2 MG TABLET PO SCH ×2 (09:24→16:56)
[2021-03-01] MEDS: DIVALPROEX SODIUM 500 MG DR TABLET PO SCH ×3 (09:24→16:57)
[2021-03-01] MEDS: OMEGA-3/DHA/EPA/FISH OIL 1,000 MG CAPSULE PO SCH (09:24)
[2021-03-01] MEDS: LORazepam 2 MG TABLET PO PRN (14:37)
[2021-03-01] MEDS: IBUPROFEN 600 MG TABLET PO PRN ×2 (14:37→20:40)
[2021-03-01 16:26] VITALS: BP 100/68
[2021-03-01] MEDS: HALOPERIDOL 5 MG TABLET PO SCH (20:07)
[2021-03-02 03:21] VITALS: BP 100/69
[2021-03-02 08:28] VITALS: BP 118/71
[2021-03-02] MEDS: OMEGA-3/DHA/EPA/FISH OIL 1,000 MG CAPSULE PO SCH (08:29)
[2021-03-02] MEDS: LORazepam 2 MG TABLET PO PRN (08:30)
[2021-03-02] MEDS: DIVALPROEX SODIUM 500 MG DR TABLET PO SCH ×3 (08:30→16:02)
[2021-03-02] MEDS: GABAPENTIN 300 MG CAPSULE PO SCH ×3 (08:30→16:02)
[2021-03-02] MEDS: TRIHEXYPHENIDYL HCL 2 MG TABLET PO SCH ×2 (09:27→16:02)
[2021-03-02] MEDS: IBUPROFEN 600 MG TABLET PO PRN (15:22)
[2021-03-02 16:09] VITALS: BP 127/87
[2021-03-02] MEDS ORDERED: TRIH2ELI2 PO (17:49)
[2021-03-02] MEDS ORDERED: TRIH2TAB3 PO (17:51)
[2021-03-02] MEDS ORDERED: HALO5TAB23 PO (17:53)
== END 2021-03-02 21:05 | disposition home or self-care (01) | DRG 750 ==
LOC: EMS 18:25 → B3A 02-27 00:36
PROVIDERS: ADMIT Psychiatry & Neurology Psychiatry; ATTEND Psychiatry & Neurology Psychiatry
DX: F25.9 Schizoaffective disorder, unspecified (principal); G40.909 Epilepsy, unspecified, not intractable, without status epilepticus; F15.10 Other stimulant abuse, uncomplicated; F19.10 Other psychoactive substance abuse, uncomplicated; F31.9 Bipolar disorder, unspecified; F43.10 Post-traumatic stress disorder, unspecified; F41.9 Anxiety disorder, unspecified; G47.00 Insomnia, unspecified; K59.00 Constipation, unspecified; Z20.822 Contact with and (suspected) exposure to COVID-19; Z72.0 Tobacco use; Z91.5 Personal history of self-harm; Z71.6 Tobacco abuse counseling; Z71.51 Drug abuse counseling and surveillance of drug abuser
CPT/HCPCS: 80053; 80061; 80164; 81003; 84702; 85025; 87081; 99285; G0480